=== PATIENT | male | born 1950 | race Caucasian/White ===

== ENCOUNTER → 2025-06-07 | Outpatient (REF) | payer MEDICARE ==
[2025-06-07 19:10] LABS: DIGOXIN LEVEL 0.6 NG/ML (0.8-2.0)
[2025-06-07 19:12] LABS: VITAMIN B12 LEVEL 360.0 PG/ML (211-911)
== END ==
LOC: M LAB REF 17:41
PROVIDERS: ATTEND Internal Medicine
DX: G47.00 Insomnia, unspecified (principal); G40.89 Other seizures

== ENCOUNTER → 2025-06-09 | Outpatient (REF) | payer MEDICARE ==
[2025-06-09 19:31] LABS: IRON (FE) 24.0 UG/DL (65-175); PERCENT SATURATION 5.1 % (19.7-50.0)
== END ==
LOC: M LAB REF 18:10
PROVIDERS: ATTEND Internal Medicine
DX: R77.8 Other specified abnormalities of plasma proteins (principal); D64.9 Anemia, unspecified

== ENCOUNTER → 2025-06-10 | Outpatient (REF) | payer MEDICARE ==
[2025-06-14 12:16] LABS: PROTEIN CREATININE RATIO 75 mg/g creat (25-148); T PROTEIN CREATININE RATIO 0.075 (0.025-0.148); UPEP CREATININE 265 mg/dL (20-320); UPEP TOTAL PROTEIN 20 mg/dL (5-25)
== END ==
LOC: M LAB REF 14:16
PROVIDERS: ATTEND Internal Medicine
DX: R77.8 Other specified abnormalities of plasma proteins (principal)